=== PATIENT | female | born 1980 | race Caucasian/White ===

== ENCOUNTER → 2017-10-21 | Outpatient (CLI) | payer OTHER | END | disposition home or self-care (01) | LOC: MAMO-SONO 09:45 → SONOGRAMA 10:31 | DX: N93.9 Abnormal uterine and vaginal bleeding, unspecified (principal); N84.0 Polyp of corpus uteri ==

== ENCOUNTER → 2018-12-27 | Outpatient (CLI) | payer OTHER | END | disposition home or self-care (01) | LOC: PRENATAL 10:58 | DX: O28.1 Abnormal biochemical finding on antenatal screening of mother (principal); O09.522 Supervision of elderly multigravida, second trimester; O09.92 Supervision of high risk pregnancy, unspecified, second trimester; O99.89 Other specified diseases and conditions complicating pregnancy, childbirth and the puerperium; O34.02 Maternal care for unspecified congenital malformation of uterus, second trimester ==

== ENCOUNTER 2019-01-03 11:19 | Outpatient (CLI) | payer OTHER | END 2019-01-03 16:25 | disposition home or self-care (01) | LOC: LAB 11:19 | DX: O09.529 Supervision of elderly multigravida, unspecified trimester (principal) ==

== ENCOUNTER 2019-03-21 18:11 | Inpatient (IN) | payer OTHER ==
[~2019-03-21] VITALS: Ht 162.6 cm; Wt 176.0 kg
[2019-03-21] MEDS ORDERED: ASA81 MG PO (19:26)
[2019-03-21] MEDS ORDERED: PRENATABS RX T1 EACH PO (19:27)
[2019-03-21] MEDS ORDERED: LORADAMED10 MG PO (19:27)
== END 2019-03-23 10:28 | disposition home or self-care (01) | DRG 833 ==
LOC: LDR 18:11 → OB/GYN 03-22 15:48
PROVIDERS: ADMIT Obstetrics & Gynecology
PROC: 4A1HXCZ Monitoring of Products of Conception, Cardiac Rate, External Approach (ICD-10-PCS; principal; 2019-03-21)
PROC: BY4FZZZ Ultrasonography of Third Trimester, Single Fetus (ICD-10-PCS; 2019-03-21)
PROC: BU4CZZZ Ultrasonography of Uterus and Ovaries (ICD-10-PCS; 2019-03-21)
DX: O60.03 Preterm labor without delivery, third trimester (principal)

== ENCOUNTER 2019-04-04 14:58 | Inpatient (IN) | payer OTHER ==
[~2019-04-04] VITALS: Ht 162.6 cm; Wt 79.8 kg
[~2019-04-04 14:58] MED LIST: ASA81 MG PO; LORADAMED10 MG PO; PRENATABS RX T1 EACH PO
== END 2019-04-07 13:59 | DRG 783 ==
LOC: OB/GYN 14:58 → LDR 14:58 → OB/GYN 19:07
PROVIDERS: ADMIT Obstetrics & Gynecology
PROC: 0UB70ZZ Excision of Bilateral Fallopian Tubes, Open Approach (ICD-10-PCS; 2019-04-04)
PROC: 4A033R1 Measurement of Arterial Saturation, Peripheral, Percutaneous Approach (ICD-10-PCS; 2019-04-04)
PROC: 4A1HXCZ Monitoring of Products of Conception, Cardiac Rate, External Approach (ICD-10-PCS; 2019-04-04)
PROC: 10D00Z1 Extraction of Products of Conception, Low, Open Approach (ICD-10-PCS; principal; 2019-04-04 19:15)
DX: O82 Encounter for cesarean delivery without indication (principal); O60.23X0 Term delivery with preterm labor, third trimester, not applicable or unspecified; O34.211 Maternal care for low transverse scar from previous cesarean delivery; Z3A.36 36 weeks gestation of pregnancy; Z37.0 Single live birth; Z30.2 Encounter for sterilization